=== PATIENT | female | born 1965 | race Caucasian/White ===

== ENCOUNTER → 2016-12-22 | Outpatient (CLI) | payer MEDICARE, MEDICAID ==
--- NOTE | 2016-12-22 16:40 | Diagnostic Imaging Report ---
Indication: COUGH Technique: 2 views of the chest Comparison: none Findings: No acute infiltrates, effusions, or congestion. Tortuous calcified aorta. Normal heart size. Upper mediastinum unremarkable. Surgical hardware seen in the lower cervical spine. No significant change Impression: No acute process.
== END | disposition home or self-care (01) ==
LOC: RAD 11:43
DX: R05 Cough (principal)
CPT/HCPCS: 71020